=== PATIENT | male | born 1935 | race Caucasian/White ===

== ENCOUNTER 2022-03-15 16:08 | Emergency (ER) | payer MEDICARE, BC ==
[~2022-03-15] VITALS: Ht 170.1 cm; Wt 61.2 kg
[2022-03-15 17:32] LABS: BASO # 0.1 10*3/uL (0.0-0.1); BASO % 0.6 % (0.0-1.0); EOS # 0.1 10*3/uL (0.0-0.4); EOS % 1.1 % (1.0-4.0); HEMATOCRIT 44.9 % (42.0-52.0); LYMPH # 1.4 10*3/uL (1.3-4.4); LYMPH % 15.3 % (27.0-41.0); MEAN CELL VOLUME 93.3 fl (80.0-94.0); MEAN CORPUSCULAR HGB 31.6 pg (27.0-31.0); MEAN CORPUSCULAR HGB CONC 33.9 g/dl (33.0-37.0); MEAN PLATELET VOLUME 9.5 fl (9.6-12.3); MONO # 0.6 10*3/uL (0.1-1.0); MONO % 6.1 % (3.0-9.0); NEUT # 6.9 10*3/uL (2.3-7.9); NEUT % 76.6 % (47.0-73.0); PLATELET COUNT AUTOMATED 285 10*3/uL (130-400); RED BLOOD COUNT 4.81 10*6/uL (4.50-5.90); RED CELL DISTRI WIDTH 12.2 % (0-14.5)
[2022-03-15 17:48] LABS: ALKALINE PHOSPHATASE 65 U/L (46-116); BUN 22 mg/dl (9-23); CHLORIDE 99 mmol/L (98-107); POTASSIUM 4.2 mmol/L (3.4-5.1); TOTAL PROTEIN 6.8 gm/dL (6.0-8.0)
[2022-03-15 17:50] LABS: SGPT/ALT < 7 U/L (10-49)
[2022-03-15 18:12] LABS: BILIRUBIN Negative (Negative); BLOOD Negative (Negative); CLARITY Clear (Clear); COLOR Yellow (Yellow); GLUCOSE Negative (Negative); KETONE 3+ (Negative); LEUKO ESTERASE Negative (Negative); NITRITE Negative (Negative); SPECIFIC GRAVITY 1.025 (1.001-1.030)
[2022-03-15 18:29] LABS: CALCIUM OXALATE CRYSTALS 1+; MUCOUS 1+
[2022-03-15] MEDS ORDERED: TRAMADOL HCL50 MG PO (19:07)
[2022-03-15] MEDS ORDERED: ATARAX,VISTARIL10 MG PO (19:08)
[2022-03-15] MEDS ORDERED: GLIPIZIDE10 M2 PO (19:08)
== END 2022-03-15 20:09 | disposition left against medical advice (07) ==
LOC: ED 16:08
PROVIDERS: Emergency Medicine
DX: R53.1 Weakness (principal); E86.0 Dehydration